=== PATIENT | male | born 1960 | race Caucasian/White ===

== ENCOUNTER 2018-05-12 12:23 | Inpatient (IN) | payer MEDICARE, MEDICAID ==
[~2018-05-12] VITALS: Ht 172.7 cm; Wt 105.2 kg
--- NOTE | 2018-05-12 12:24 | NUR ---
BIB RA 60 FROM [facility] FOR LOW O2SAT 80'S AFTER WALKING ASSOCIATED WITH SWEATING , TO ER BED , HOOKED TO MONITOR, CHANGED TO GOWN, PROVIDED W WARM BLANKET, AWAITING MD SMALL.
--- NOTE | 2018-05-12 12:28 | NUR ---
DR BARRETT AT BEDSIDE
[2018-05-12 12:52] LABS: BASOPHILS # (AUTO) 0.1 /CMM (0.0-0.2); BASOPHILS % (AUTO) 0.7 % (0.0-2.0); EOSINOPHILS % (AUTO) 0.4 % (0.0-6.0); HEMATOCRIT 47 % (39-51); HEMOGLOBIN 15.6 g/dL (13.5-17.5); LYMPHOCYTES # (AUTO) 2.3 /CMM (0.8-4.8); LYMPHOCYTES % (AUTO) 28.1 % (20.0-44.0); MEAN CORPUSCULAR HGB CONC 33 g/dl (31.0-36.0); MEAN CORPUSCULAR VOLUME 93 fL (80-96); MONOCYTES # (AUTO) 0.8 /CMM (0.1-1.30); MONOCYTES % (AUTO) 10.1 % (2.0-12.0); NEUTROPHILS # (AUTO) 4.9 /CMM (1.8-8.9); NEUTROPHILS % (AUTO) 60.7 % (43.0-81.0); PLATELET COUNT (AUTO) 265 /CMM (150-450); RED BLOOD CELL COUNT(AUTO) 5.02 MIL/uL (4.5-6.0)
[2018-05-12] MEDS ORDERED: FUROSEMIDE 40 MG/4 ML VIAL ONE (12:58)
[2018-05-12] MEDS ORDERED: FUROSEMIDE 40 MG/4 ML VIAL IV ONE (13:00)
[2018-05-12 13:01] LABS: CALCIUM, SERUM 9.2 mg/dL (8.5-10.1); CREATININE 2.5 mg/dL (0.6-1.3); POTASSIUM 3.4 mmol/L (3.5-5.1)
[2018-05-12 13:14] LABS: ALBUMIN 3.9 g/dL (3.4-5.0); BILIRUBIN,DIRECT 0.3 mg/dL (0.0-0.2); TOTAL PROTEIN, SERUM 9.1 g/dL (6.4-8.2)
--- NOTE | 2018-05-12 13:18 | NUR ---
called jevon betancourt for tele bed
[2018-05-12] MEDS ORDERED: ACET-868 PO (13:38)
[2018-05-12] MEDS ORDERED: LOPI1TAB2 PO (13:38)
[2018-05-12] MEDS ORDERED: MULT-447 PO (13:38)
[2018-05-12] MEDS ORDERED: FINA5TAB11 PO (13:38)
[2018-05-12] MEDS ORDERED: MAGN400O6 PO (13:38)
[2018-05-12] MEDS ORDERED: LEVO50TA8 PO (13:38)
[2018-05-12] MEDS ORDERED: HYDR-4384 PO (13:38)
[2018-05-12] MEDS ORDERED: DIPH25CA6 PO (13:38)
[2018-05-12] MEDS ORDERED: SENN-18 PO (13:38)
[2018-05-12] MEDS ORDERED: BISA10SU8 RC (13:38)
[2018-05-12] MEDS ORDERED: LOSA25TA27 PO (13:38)
[2018-05-12] MEDS ORDERED: GEMF600T PO (13:38)
[2018-05-12] MEDS ORDERED: ESCI5TAB PO (13:38)
[2018-05-12] MEDS ORDERED: AMOX500C2 PO (13:38)
[2018-05-12] MEDS ORDERED: TENO300T5 PO (13:38)
[2018-05-12] MEDS ORDERED: NA P133E RC (13:38)
[2018-05-12] MEDS ORDERED: APIX5TAB PO (13:38)
[2018-05-12] MEDS ORDERED: LORA10TA68 PO (13:38)
[2018-05-12] MEDS ORDERED: GABA-534 PO (13:38)
[2018-05-12] MEDS ORDERED: ATOR40TA PO (13:38)
[2018-05-12] MEDS ORDERED: LAMI300T PO (13:38)
[2018-05-12] MEDS ORDERED: TRAZ-182 PO (13:38)
[2018-05-12] MEDS ORDERED: CARV3.122 PO (13:38)
[2018-05-12] MEDS ORDERED: LIDO30AD10 TP (13:39)
[2018-05-12] MEDS ORDERED: METO2.5T7 PO (13:39)
[2018-05-12] MEDS ORDERED: FURO80TA85 PO (13:39)
[2018-05-12] MEDS ORDERED: ASPIRIN 81 MG TAB.CHEW ONE (13:57)
[2018-05-12] MEDS ORDERED: BISACODYL SUPP (10 MG) 10 MG/SUPP.RECT SUPP.RECT RC PRN (14:00)
[2018-05-12] MEDS ORDERED: ASPIRIN 81 MG TAB.CHEW PO ONE (14:00)
[2018-05-12] MEDS ORDERED: NA PHOS,M-B/NA PHOS,DI-BA 1 EA ENEMA RC PRN (14:00)
[2018-05-12] MEDS ORDERED: MAGNESIUM HYDROXIDE 30 ML UDC PO PRN ×2 (14:00→14:30)
--- NOTE | 2018-05-12 14:04 | NUR ---
REPORT GIVEN TO CASPER KRAMER OF TELE UNIT
[2018-05-12] MEDS ORDERED: ACETAMINOPHEN 325 MG TABLET PO PRN (14:30)
[2018-05-12] MEDS ORDERED: MORPHINE SULFATE INJ 2 MG/ML DISP.SYRIN IV PRN (14:30)
[2018-05-12] MEDS ORDERED: ONDANSETRON HCL/PF 4 MG/2 ML VIAL IVP PRN (14:30)
[2018-05-12] MEDS ORDERED: MAG HYDROX/AL HYDROX/SIMETH 30 ML UDC PO PRN (14:30)
[2018-05-12] MEDS ORDERED: Z GUARD REMEDY 2 OZ OINT TP PRN (14:30)
[2018-05-12] MEDS ORDERED: ENOXAPARIN SODIUM 40 MG/0.4 ML DISP.SYRIN SQ SCH (14:30)
--- NOTE | 2018-05-12 14:30 | NUR ---
MS grocery cashier Notes Received patient on divya in stable condition from ED. Vital signs stable; BP low, noted and reassessed as needed. Patient currently awake, resting in bed. Semi-Fowlers position. Alert and oriented x4, able to make needs known. No complaints of shortness of breath or pain at this time. Respirations even and unlabored on 4 L oxygen via nasal cannula, no acute distress noted. Peripheral IV to the right AC 20 gauge and intact, patent and saline locked. Ambulates with steady gait and standby assist. Skin assessment completed, no skin issues noted. Sacrum intact with no redness to site. Oriented patient to room and safety aspects and safety measures. Updated patient on current plan of care. Safety and fall precautions in place: bed in lowest and locked position, side rails up x2, bed alarm on, call light and personal possessions within reach. Reminded patient of safety measures, verbalized understanding. Room well lit. Personal belongings inventoried in front of patient upon arrival, signed form for acknowledgement. Received admission ordered and will carry out. Will continue to monitor and intervene as needed.
[2018-05-12 14:37] LABS: MAGNESIUM 1.9 mg/dL (1.8-2.4); PHOSPHORUS 6.8 mg/dL (2.5-4.9)
[2018-05-12 14:45] VITALS: BP 97/60
[2018-05-12] MEDS: FUROSEMIDE 40 MG/4 ML VIAL IV SCH ×3 (15:00→23:34)
[2018-05-12] MEDS: methylPREDNISolone SOD SUCC 125 MG/2ML VIAL IV SCH ×2 (15:00→17:11)
[2018-05-12] MEDS ORDERED: ALBUTEROL FS 2.5 MG/0.5 ML VIAL.NEB NEB PRN (15:00)
--- NOTE | 2018-05-12 15:02 | NUR ---
TRANSFERRED TO TELE UNIT WITH TECH VIA RIVKA
[2018-05-12 15:34] LABS: ABG BASE EXCESS 2.8 mmol/L; ABG OXYGEN SATURATION 96.6 % (92.0-98.5); ABG PO2 94.4 mmHg (75.0-100.0); AaDO2 71.3 mmHg; COHb 1.3 % (0.5-1.5); MetHb 0.4 % (0.0-1.5); SITE, ABG Right Radial; VENT MODE, BG NC 4L
[2018-05-12 16:00] VITALS: BP 131/75
[2018-05-12] MEDS ORDERED: CEFTRIAXONE 1 G in IV D5W 50 ML IV SCH (16:00)
[2018-05-12 16:08] LABS: THYROID STIMULATING HORMONE 4.052 uIU/mL (0.358-3.74)
[2018-05-12] MEDS: IPRATROPIUM NEB FS 0.5 MG/2.5 ML AMPUL.NEB NEB SCH ×2 (16:59→20:09)
[2018-05-12] MEDS ORDERED: GEMFIBROZIL 600 MG TABLET PO SCH (17:00)
[2018-05-12] MEDS ORDERED: AZITHROMYCIN 500 MG in IV D5W 250 ML IV SCH (17:00)
[2018-05-12] MEDS: GABAPENTIN 300 MG CAPSULE PO SCH (17:09)
[2018-05-12] MEDS: POTASSIUM CHLORIDE 20 MEQ TAB.PRT.SR PO SCH ×2 (17:09→20:22)
[2018-05-12] MEDS: CARVEDILOL 3.125 MG TABLET PO SCH (17:12)
[2018-05-12] MEDS: APIXABAN 5 MG TABLET PO SCH (17:21)
[2018-05-12] MEDS ORDERED: ALBUTEROL FS 2.5 MG/0.5 ML VIAL.NEB NEB SCH (19:30)
--- NOTE | 2018-05-12 19:30 | NUR ---
MS RN Closing Notes Patient currently awake, resting in bed. Semi-Fowlers position. Alert and oriented x4, able to make needs known. No complaints of shortness of breath or pain at this time. Respirations even and unlabored on 4 L oxygen via nasal cannula, no acute distress noted. Peripheral IV to the right AC 20 gauge and intact, patent and saline locked. Ambulates with steady gait and stanby assist. Updated patient on current plan of care and safety measures. Safety and fall precautions in place: bed in lowest and locked position, side rails up x2, bed alarm on, call light and personal possessions within reach. Reminded patient of safety measures, verbalized understanding. Room well lit. Front wheeled walker at the bedside. No acute events this shift. Endorsed care to invoice classification clerk WILLIAMS Brenner at this time.
--- NOTE | 2018-05-12 19:49 | NUR ---
RN OPENING NOTES RECEIVED PATIENT AWAKE IN BED. A/O X 4. ABLE TO MAKE NEEDS KNOWN. PATIENT HAS NO SIGNS OF RESPIRATORY DISTRESS. DENIES PAIN AT THIS TIME. SAFETY PRECAUTIONS IMPLEMENTED. CALL LIGHT WITHIN REACH. WILL CONTINUE TO MONITOR PATIENT THROUGHOUT MY SHIFT.
[2018-05-12] MEDS: CEFEPIME 1 GM in IV D5W 50 ML IV SCH (19:56)
[2018-05-12 20:00] VITALS: BP 131/79
[2018-05-12 20:14] VITALS: BP 131/79
[2018-05-12] MEDS ORDERED: POTASSIUM CHLORIDE 20 MEQ TAB.PRT.SR PO SCH (21:00)
[2018-05-12] MEDS: TRAZODONE 50 MG TABLET PO SCH (21:30)
[2018-05-12] MEDS: FINASTERIDE (5 MG) 5 MG TABLET PO SCH (21:30)
[2018-05-12] MEDS: diphenhydrAMINE HCL 25 MG CAPSULE PO SCH (21:31)
[2018-05-12] MEDS: SENNOSIDES 8.6 MG TABLET PO SCH (21:31)
[2018-05-12 23:33] VITALS: BP 116/70
[2018-05-12 23:50] VITALS: BP 115/70
[2018-05-13] VITALS: BP 117/73
[2018-05-13] MEDS: ALBUTEROL HALF STRENGTH 1.25 MG/3 ML VIAL.NEB NEB SCH ×4 (00:50→19:35)
[2018-05-13] MEDS: IPRATROPIUM NEB FS 0.5 MG/2.5 ML AMPUL.NEB NEB SCH ×4 (00:50→19:35)
[2018-05-13 04:00] VITALS: BP 114/59
[2018-05-13 06:07] LABS: *BASOS 0 % (Not Estab.); *EOS 1 % (Not Estab.); *EOS, ABSOLUTE 0.1 x10E3/uL (0.0-0.4); *HCT 43.4 % (37.5-51.0); *HGB 15.2 g/dL (13.0-17.7); *IMMATURE GRANULOCYTES 0 % (Not Estab.); *LYMPHOCYTES 30 % (Not Estab.); *MCH 31.3 pg (26.6-33.0); *MCV 89 fL (79-97); *MONOCYTES 6 % (Not Estab.); *MONOS, ABSOLUTE 0.4 x10E3/uL (0.1-0.9); *NEUTROPHILS 63 % (Not Estab.); *NEUTROPHILS, ABSOLUTE 4.2 x10E3/uL (1.4-7.0); *PLT 294 x10E3/uL (150-379); *RBC 4.86 x10E6/uL (4.14-5.80); *RDW 15.8 % (12.3-15.4)
--- NOTE | 2018-05-13 06:25 | NUR ---
RN CLOSING NOTES PATIENT IS RESTING IN BED AT THIS TIME. NO S/S OF RESPIRATORY DISTRESS. NO S/S OF SHORTNESS OF BREATH. NO FACIAL GRIMACING. IV SITE PATENT AND INTACT. SAFETY PRECAUTIONS IMPLEMENTED. CALL LIGHT WITHIN REACH. WILL ENDORSE TO AM RN.
[2018-05-13 06:37] LABS: BASOPHILS % (AUTO) 0.1 % (0.0-2.0); EOSINOPHILS % (AUTO) 0.1 % (0.0-6.0); HEMATOCRIT 46 % (39-51); HEMOGLOBIN 15.5 g/dL (13.5-17.5); LYMPHOCYTES # (AUTO) 1.4 /CMM (0.8-4.8); LYMPHOCYTES % (AUTO) 29.8 % (20.0-44.0); MEAN CORPUSCULAR HGB CONC 34 g/dl (31.0-36.0); MEAN CORPUSCULAR VOLUME 93 fL (80-96); MONOCYTES # (AUTO) 0.1 /CMM (0.1-1.30); MONOCYTES % (AUTO) 1.8 % (2.0-12.0); NEUTROPHILS # (AUTO) 3.2 /CMM (1.8-8.9); NEUTROPHILS % (AUTO) 68.2 % (43.0-81.0); PLATELET COUNT (AUTO) 267 /CMM (150-450); RED BLOOD CELL COUNT(AUTO) 4.94 MIL/uL (4.5-6.0); WHITE BLOOD COUNT (AUTO) 4.6 K/uL (4.3-11.0)
[2018-05-13 06:52] LABS: HDL CHOLESTEROL 34 mg/dL (40-60); LDL 122 mg/dL (0-99); THYROID STIMULATING HORMONE 0.581 uIU/mL (0.358-3.74); TRIGLYCERIDES 214 mg/dL (30-150)
[2018-05-13 06:55] LABS: ALANINE AMINOTRANSFERASE 56 U/L (12-78); ALBUMIN 3.7 g/dL (3.4-5.0); ALKALINE PHOSPHATASE 88 U/L (46-116); ASPARTATE AMINOTRANSFERASE 105 U/L (15-37); BILIRUBIN,TOTAL 0.8 mg/dL (0.2-1.0); CARBON DIOXIDE 26 mmol/L (21-32); CHLORIDE 96 mmol/L (98-107); CREATININE 1.8 mg/dL (0.6-1.3); GLUCOSE 133 mg/dL (74-106); MAGNESIUM 2.4 mg/dL (1.8-2.4); PHOSPHORUS 6.8 mg/dL (2.5-4.9); POTASSIUM 3.4 mmol/L (3.5-5.1); SODIUM SERUM 136 mmol/L (136-145); TOTAL PROTEIN, SERUM 9.1 g/dL (6.4-8.2); UREA NITROGEN, BLOOD 56 mg/dL (7-18)
[2018-05-13 07:38] LABS: CHOLESTEROL 196 mg/dL (<200)
--- NOTE | 2018-05-13 07:40 | NUR ---
RN NOTES PATIENT A/OX3, BREATHING EVEN AND UNLABORED, JUST COMPLETED BREATHING TX, PATIENT BACK ON O2 AT 3LPM VIA NC, NO SOB NOTED. KEPT COMFORTABLE, BEDSIDE TABLE AND CALL LIGHT WITHIN REACH, WILL CONTINUE TO MONITOR.
[2018-05-13 08:00] VITALS: BP 118/67
[2018-05-13 08:04] LABS: ABG BASE EXCESS 2.2 mmol/L; ABG OXYGEN SATURATION 92.1 % (92.0-98.5); ABG PCO2 46.3 mmHg (35.0-45.0); ABG PH 7.396 (7.350-7.450); ABG PO2 72.4 mmHg (75.0-100.0); AaDO2 72.6 mmHg; COHb 0.9 % (0.5-1.5); MetHb 0.4 % (0.0-1.5); O2Hb 90.9 % (94.0-97.0); SITE, ABG Right Radial; VENT MODE, BG NASAL CANNULA
[2018-05-13] MEDS: PANTOPRAZOLE 40 MG TABLET.DR PO SCH (08:08)
[2018-05-13] MEDS: LEVOTHYROXINE SODIUM 50 MCG TABLET PO SCH (08:08)
[2018-05-13] MEDS: LORATADINE 10 MG TABLET PO SCH (08:20)
[2018-05-13] MEDS: CARVEDILOL 3.125 MG TABLET PO SCH ×2 (08:21→17:40)
[2018-05-13] MEDS: methylPREDNISolone SOD SUCC 125 MG/2ML VIAL IV SCH ×2 (08:21→17:40)
[2018-05-13] MEDS: ATORVASTATIN 40 MG TABLET PO SCH (08:21)
[2018-05-13] MEDS: MULTIVIT W/MINERALS 1 TAB TABLET PO SCH (08:21)
[2018-05-13] MEDS: LOSARTAN POTASSIUM 25 MG TABLET PO SCH (08:21)
[2018-05-13] MEDS: LIDOCAINE 5% (PATCH) 1 EA PATCH TP SCH (08:22)
[2018-05-13] MEDS: METOLAZONE 2.5 MG TABLET PO SCH (08:22)
[2018-05-13] MEDS: GABAPENTIN 300 MG CAPSULE PO SCH ×3 (08:22→17:39)
[2018-05-13] MEDS: ESCITALOPRAM OXALATE (10 MG) 10 MG TABLET PO SCH (08:22)
[2018-05-13] MEDS ORDERED: FUROSEMIDE 40 MG TABLET PO SCH (09:00)
[2018-05-13] MEDS: APIXABAN 5 MG TABLET PO SCH ×2 (09:20→17:43)
[2018-05-13] MEDS ORDERED: POTASSIUM CHLORIDE 20 MEQ TAB.PRT.SR PO ONE (09:30)
--- NOTE | 2018-05-13 11:30 | NUR ---
RN NOTES SINA AT BEDSIDE FOR EVAL AND TO DISCUSS PLAN OF CARE.
[2018-05-13] MEDS: HYDROCODONE/APAP 5/325MG 1 EACH TABLET PO PRN (12:02)
[2018-05-13 12:11] LABS: *% CD 4 POS. LYMPH 7.8 % (30.8-58.5); *% CD 8 POS. LYMPH 47.9 % (12.0-35.5); *ABSOLUTE CD 4 HELPER 156 /uL (359-1519); *ABSOLUTE CD 8 SUPPRESSOR 958 /uL (109-897); *CD4/CD8 RATIO 0.16 (0.92-3.72)
[2018-05-13 16:00] VITALS: BP 113/65
--- NOTE | 2018-05-13 18:24 | NUR ---
RN NOTES PERIPHERALLY IV RE-INSERTED ON RIGHT AC, LATERAL SIDE OF THE ARM. GAUGE 20. POSITIVE BLOOD RETURN AND FLUSHES WITH NS. PATIENT A/OX4, BREATHING EVEN AND UNLABORED, REMOVES [employer] CANNULA FROM TIME TO TIME, NO SOB NOTED. PATIENT DENIES PAIN OR DISCOMFORT AT THIS TIME. I SPOKE WITH THE PARTNER BRANDI, AND HE STATED HE WILL BRING 3 HIV MEDICATIONS LATER TONIGHT. PHARMACY MADE AWARE. PATIENT ABLE TO AMBULATE INDEPENDENTLY TO RESTROOM WITH STEADY GAIT. NO DISTRESS NOTED, CALL LIGHT WITHIN REACH, WILL ENDORSE TO REMARKETING REP FOR WHITNEY.
[2018-05-13] MEDS: CEFEPIME 1 GM in IV D5W 50 ML IV SCH (19:48)
[2018-05-13 20:00] VITALS: BP 124/73
[2018-05-13] MEDS ORDERED: AZITHROMYCIN 250 MG TABLET PO SCH (20:00)
[2018-05-13] MEDS: diphenhydrAMINE HCL 25 MG CAPSULE PO SCH (20:09)
[2018-05-13] MEDS: SENNOSIDES 8.6 MG TABLET PO SCH (20:09)
[2018-05-13] MEDS: TRAZODONE 50 MG TABLET PO SCH (20:09)
[2018-05-13] MEDS: FINASTERIDE (5 MG) 5 MG TABLET PO SCH (20:09)
[2018-05-13] MEDS: ACYCLOVIR 800 MG TABLET PO SCH (20:10)
[2018-05-13] MEDS: SULFAMETH/TRIMETH 800/160 MG 1 UDTAB TABLET PO SCH (20:10)
[2018-05-13] MEDS: FLUCONAZOLE (100 MG) 100 MG TABLET PO SCH (20:11)
--- NOTE | 2018-05-13 20:25 | NUR ---
RN OPENING NOTES RECEIVED PATIENT AWAKE IN BED. PATIENT A/O X 4. BREATHING EVEN AND UNLABORED. NO S/S OF RESPIRATORY DISTRESS. PATIENT DENIES SOB. PATIENT DENIES PAIN OR DISCOMFORT AT THIS TIME. PATIENT IS ABLE TO MAKE NEEDS KNOWN. SAFETY PRECAUTIONS IMPLEMENTED. CALL LIGHT WITHIN REACH. WILL CONTINUE TO MONITOR PATIENT THROUGHOUT THE SHIFT.
[2018-05-14 00:43] VITALS: BP 124/73
[2018-05-14] MEDS: ALBUTEROL HALF STRENGTH 1.25 MG/3 ML VIAL.NEB NEB SCH ×4 (01:02→19:39)
[2018-05-14] MEDS: IPRATROPIUM NEB FS 0.5 MG/2.5 ML AMPUL.NEB NEB SCH ×4 (01:02→19:39)
[2018-05-14] MEDS ORDERED: LAMI150T PO (04:28)
[2018-05-14] MEDS ORDERED: LOPI1TAB2 PO (04:28)
[2018-05-14] MEDS ORDERED: TENO300T5 PO (04:28)
--- NOTE | 2018-05-14 06:43 | NUR ---
RN CLOSING NOTES PATIENT IS RESTING IN BED. NO S/S OF RESPIRATORY DISTRESS. NO FACIAL GRIMACING NOTED AT THIS TIME. ALL NEEDS MET THROUGHOUT THE SHIFT. SAFETY PRECAUTIONS IMPLEMENTED. CALL LIGHT WITHIN REACH. WILL ENDORSE TO AM RN.
--- NOTE | 2018-05-14 07:10 | NUR ---
RN NOTES PATIENT A/OX3, BREATHING EVEN AND UNLABORED, JUST COMPLETED BREATHING TX, PATIENT CONTINUOUS TO BE ON O2 VIA NC, NO SOB NOTED. PATIENT C/O BURNING SENSATION, DISCOMFORT IN HIS MOUTH AND THROAT, WILL INFORM MD, KEPT COMFORTABLE, BEDSIDE TABLE AND CALL LIGHT WITHIN REACH, WILL CONTINUE TO MONITOR.
[2018-05-14 08:00] VITALS: BP 129/82
[2018-05-14 08:08] LABS: CALCIUM, SERUM 8.9 mg/dL (8.5-10.1); POTASSIUM 3.1 mmol/L (3.5-5.1)
[2018-05-14] MEDS: methylPREDNISolone SOD SUCC 125 MG/2ML VIAL IV SCH ×2 (08:09→16:17)
[2018-05-14] MEDS: LIDOCAINE 5% (PATCH) 1 EA PATCH TP SCH (08:09)
[2018-05-14] MEDS: LEVOTHYROXINE SODIUM 50 MCG TABLET PO SCH (08:09)
[2018-05-14] MEDS: PANTOPRAZOLE 40 MG TABLET.DR PO SCH (08:09)
[2018-05-14] MEDS: FLUCONAZOLE (100 MG) 100 MG TABLET PO SCH (08:10)
[2018-05-14] MEDS: GABAPENTIN 300 MG CAPSULE PO SCH ×3 (08:10→16:14)
[2018-05-14] MEDS: LORATADINE 10 MG TABLET PO SCH (08:10)
[2018-05-14] MEDS: ATORVASTATIN 40 MG TABLET PO SCH (08:10)
[2018-05-14] MEDS: MULTIVIT W/MINERALS 1 TAB TABLET PO SCH (08:10)
[2018-05-14] MEDS: ACYCLOVIR 800 MG TABLET PO SCH ×2 (08:10→16:14)
[2018-05-14] MEDS: ESCITALOPRAM OXALATE (10 MG) 10 MG TABLET PO SCH (08:10)
[2018-05-14 08:11] LABS: BASOPHILS % (AUTO) 0.1 % (0.0-2.0); HEMATOCRIT 44 % (39-51); HEMOGLOBIN 15.2 g/dL (13.5-17.5); LYMPHOCYTES # (AUTO) 1.1 /CMM (0.8-4.8); LYMPHOCYTES % (AUTO) 13.2 % (20.0-44.0); MEAN CORPUSCULAR HGB CONC 34 g/dl (31.0-36.0); MEAN CORPUSCULAR VOLUME 91 fL (80-96); MONOCYTES # (AUTO) 0.5 /CMM (0.1-1.30); MONOCYTES % (AUTO) 6.8 % (2.0-12.0); NEUTROPHILS # (AUTO) 6.4 /CMM (1.8-8.9); NEUTROPHILS % (AUTO) 79.9 % (43.0-81.0); PLATELET COUNT (AUTO) 299 /CMM (150-450); RED BLOOD CELL COUNT(AUTO) 4.84 MIL/uL (4.5-6.0)
[2018-05-14] MEDS: METOLAZONE 2.5 MG TABLET PO SCH (08:11)
[2018-05-14] MEDS: LOSARTAN POTASSIUM 25 MG TABLET PO SCH (08:11)
[2018-05-14] MEDS: CARVEDILOL 3.125 MG TABLET PO SCH ×2 (08:12→16:13)
[2018-05-14] MEDS: APIXABAN 5 MG TABLET PO SCH ×2 (08:19→16:13)
[2018-05-14] MEDS: KALETRA PO SCH ×2 (09:00→16:13)
[2018-05-14] MEDS: TENOFOVIR 300 MG PO SCH (09:01)
[2018-05-14] MEDS: POTASSIUM CHLORIDE 20 MEQ TAB.PRT.SR PO SCH ×3 (09:03→11:16)
[2018-05-14] MEDS: FUROSEMIDE 40 MG TABLET PO SCH (09:03)
[2018-05-14] MEDS: LAMIVUDINE 300 MG PO SCH (11:41)
[2018-05-14 13:03] LABS: APPEARANCE,URINE CLEAR (CLEAR); BILIRUBIN,URINE NEGATIVE (NEGATIVE); BLOOD, URINE NEGATIVE Ery/uL (NEGATIVE); COLOR,URINE YELLOW (YELLOW); KETONES,URINE NEGATIVE (NEGATIVE); LEUKOCYTE ESTERASE ,URINE NEGATIVE (NEGATIVE); NITRITE, URINE NEGATIVE (NEGATIVE); PROTEIN,URINE NEGATIVE (NEGATIVE); UGLUCOSE 1+ mg/dL (NEGATIVE); UROBILINOGEN,URINE 0.2 EU/dL (0.2)
[2018-05-14 13:38] LABS: BACTERIA,URINE None seen /HPF (None Seen); RBC,URINE 0-2 /HPF (0-2); SQUAMOUS EPITHELIAL CELL,UR Few /HPF (None Seen); WBC,URINE 0-2 /HPF (0-3)
[2018-05-14 16:00] VITALS: BP 107/73
--- NOTE | 2018-05-14 19:19 | NUR ---
RN NOTES PATIENT A/OX4, NO DISTRESS NOTED, VSS, NO SIGNIFICANT CHANGE THROUGHOUT THE SHIFT, FRANKLYN AWARE OF DISCOMFORT IN THE THROAT, NO NEW ORDER. PATIENT'S NEEDS ATTENDED AND MET, CALL LIGHT WITHIN REACH, ENDORSED TO AWARD MACHINE OPERATOR FOR WHITNEY.
--- NOTE | 2018-05-14 19:30 | NUR ---
PT IN BED AWAKE AND ALERT. BREATHING EVENLY. NO SOB. NAD .SKIN WARM AND DRY. BREATHING EVENLY. REPORTED SOB WHILE AMBULATING TO THE BATHROOM. OTHERWISE NO OTHER COMPLAINT. DENIED PAIN OR DISCOMFORT. NEEDS ATTENDED. BED LOW LOCKED.CALL LIGHT WITHIN REACH. WILL CONT TO MONITOR AND WILL ENDORSE TO AM SHIFT FOR WHITNEY.
--- NOTE | 2018-05-14 19:42 | NUR ---
RT NOTE PT FOUND RETURNING FROM RESTROOM, O2 SAT 88% ON ROOM AIR. RN NOTIFIED TO HAVE NC ON WHEN MOVING AROUND OR GOING TO RESTROOM. BREATHING TX STARTED AND WILL BE PUT ON NC AFTER TX IS DONE.
[2018-05-14 20:00] VITALS: BP 144/75
[2018-05-14] MEDS: SULFAMETH/TRIMETH 800/160 MG 1 UDTAB TABLET PO SCH (20:02)
[2018-05-14] MEDS: FINASTERIDE (5 MG) 5 MG TABLET PO SCH (22:36)
[2018-05-14] MEDS: TRAZODONE 50 MG TABLET PO SCH (22:36)
[2018-05-14] MEDS: SENNOSIDES 8.6 MG TABLET PO SCH (22:36)
[2018-05-14] MEDS: diphenhydrAMINE HCL 25 MG CAPSULE PO SCH (22:36)
[2018-05-15] MEDS: ALBUTEROL HALF STRENGTH 1.25 MG/3 ML VIAL.NEB NEB SCH ×4 (01:21→20:30)
[2018-05-15] MEDS: IPRATROPIUM NEB FS 0.5 MG/2.5 ML AMPUL.NEB NEB SCH ×4 (01:21→20:30)
--- NOTE | 2018-05-15 07:06 | NUR ---
PT REMAINED STABLE WITH NO ACUTE EVENT DURING THE NIGHT. NO SOB. NAD. ASSISTED W. ADLS. CALL LIGHT WITHIN REACH. WILL CONT TO MONITOR AND WILL ENDORSE TO AM SHIFT FOR WHITNEY.
[2018-05-15 07:21] LABS: BASOPHILS % (AUTO) 0.1 % (0.0-2.0); HEMATOCRIT 44 % (39-51); HEMOGLOBIN 14.9 g/dL (13.5-17.5); LYMPHOCYTES # (AUTO) 0.9 /CMM (0.8-4.8); LYMPHOCYTES % (AUTO) 12.5 % (20.0-44.0); MEAN CORPUSCULAR HGB CONC 34 g/dl (31.0-36.0); MEAN CORPUSCULAR VOLUME 92 fL (80-96); MONOCYTES # (AUTO) 0.3 /CMM (0.1-1.30); MONOCYTES % (AUTO) 3.6 % (2.0-12.0); NEUTROPHILS # (AUTO) 6.1 /CMM (1.8-8.9); NEUTROPHILS % (AUTO) 83.8 % (43.0-81.0); PLATELET COUNT (AUTO) 291 /CMM (150-450); RED BLOOD CELL COUNT(AUTO) 4.75 MIL/uL (4.5-6.0); WHITE BLOOD COUNT (AUTO) 7.3 K/uL (4.3-11.0)
[2018-05-15 07:48] LABS: ALBUMIN 3.2 g/dL (3.4-5.0); BILIRUBIN,TOTAL 0.3 mg/dL (0.2-1.0); CALCIUM, SERUM 9.1 mg/dL (8.5-10.1); MAGNESIUM 2.3 mg/dL (1.8-2.4); PHOSPHORUS 2.2 mg/dL (2.5-4.9); POTASSIUM 3.8 mmol/L (3.5-5.1); TOTAL PROTEIN, SERUM 7.9 g/dL (6.4-8.2)
[2018-05-15 08:00] VITALS: BP 139/88
[2018-05-15] MEDS: SULFAMETH/TRIMETH 800/160 MG 1 UDTAB TABLET PO SCH (09:15)
[2018-05-15] MEDS: LORATADINE 10 MG TABLET PO SCH (09:15)
[2018-05-15] MEDS: CARVEDILOL 3.125 MG TABLET PO SCH ×2 (09:15→17:57)
[2018-05-15] MEDS: METOLAZONE 2.5 MG TABLET PO SCH (09:16)
[2018-05-15] MEDS: ESCITALOPRAM OXALATE (10 MG) 10 MG TABLET PO SCH (09:16)
[2018-05-15] MEDS: FUROSEMIDE 40 MG TABLET PO SCH (09:16)
[2018-05-15] MEDS: FLUCONAZOLE (100 MG) 100 MG TABLET PO SCH (09:16)
[2018-05-15] MEDS: MULTIVIT W/MINERALS 1 TAB TABLET PO SCH (09:16)
[2018-05-15] MEDS: LOSARTAN POTASSIUM 25 MG TABLET PO SCH (09:16)
[2018-05-15] MEDS: GABAPENTIN 300 MG CAPSULE PO SCH ×3 (09:17→17:56)
[2018-05-15] MEDS: ACYCLOVIR 800 MG TABLET PO SCH ×2 (09:17→17:56)
[2018-05-15] MEDS: ATORVASTATIN 40 MG TABLET PO SCH ×2 (09:17→09:28)
[2018-05-15] MEDS: TENOFOVIR 300 MG PO SCH (09:19)
[2018-05-15] MEDS: LAMIVUDINE 300 MG PO SCH (09:20)
[2018-05-15] MEDS: APIXABAN 5 MG TABLET PO SCH ×2 (09:20→17:56)
[2018-05-15] MEDS: KALETRA PO SCH ×2 (09:20→17:56)
[2018-05-15] MEDS: PANTOPRAZOLE 40 MG TABLET.DR PO SCH (09:27)
[2018-05-15] MEDS: LEVOTHYROXINE SODIUM 50 MCG TABLET PO SCH (09:27)
[2018-05-15] MEDS: LIDOCAINE 5% (PATCH) 1 EA PATCH TP SCH (09:29)
[2018-05-15] MEDS: methylPREDNISolone SOD SUCC 125 MG/2ML VIAL IV SCH ×2 (09:55→09:56)
[2018-05-15 11:09] LABS: *SPE A/G RATIO 0.8 (0.7-1.7); *SPE ALBUMIN 3.9 g/dL (2.9-4.4); *SPE ALPHA-1-GLOBULIN 0.2 g/dL (0.0-0.4); *SPE ALPHA-2-GLOBULIN 1.1 g/dL (0.4-1.0); *SPE BETA GLOBULIN 1.2 g/dL (0.7-1.3); *SPE GLOBULIN, TOTAL 4.6 g/dL (2.2-3.9); *SPE M-SPIKE 1.5 g/dL (Not Observed)
[2018-05-15] MEDS ORDERED: K PHOS NEUTRAL 250 MG TABLET PO ONE (12:00)
[2018-05-15 12:08] LABS: *SPE A/G RATIO 0.7 (0.7-1.7); *SPE ALBUMIN 3.4 g/dL (2.9-4.4); *SPE ALPHA-1-GLOBULIN 0.2 g/dL (0.0-0.4); *SPE ALPHA-2-GLOBULIN 1.2 g/dL (0.4-1.0); *SPE BETA GLOBULIN 0.7 g/dL (0.7-1.3); *SPE GLOBULIN, TOTAL 5.1 g/dL (2.2-3.9); *SPE M-SPIKE 2.3 g/dL (Not Observed); *SPEGAMMA GLOBULIN 2.9 g/dL (0.4-1.8)
[2018-05-15 16:00] VITALS: BP 116/63
[2018-05-15 20:00] VITALS: BP 138/86
[2018-05-15] MEDS: TRAZODONE 50 MG TABLET PO SCH (21:23)
[2018-05-15] MEDS: FINASTERIDE (5 MG) 5 MG TABLET PO SCH (21:23)
[2018-05-15] MEDS: diphenhydrAMINE HCL 25 MG CAPSULE PO SCH (21:23)
[2018-05-15] MEDS: SENNOSIDES 8.6 MG TABLET PO SCH (21:23)
[2018-05-15] MEDS: HYDROCODONE/APAP 5/325MG 1 EACH TABLET PO PRN (23:07)
--- NOTE | 2018-05-15 23:10 | NUR ---
norco 5 given as ordered per pt's request for c/o generalized body pain . will cont to monitor ,
--- NOTE | 2018-05-16 00:20 | NUR ---
PT WAS VISITED BY HIS PARTNER WHO BROUGHT HIM SOME CLOTHING. ALL THE QUESTIONS FROM THE VISITORS WERE ANSWERED,
[2018-05-16] MEDS: ALBUTEROL HALF STRENGTH 1.25 MG/3 ML VIAL.NEB NEB SCH ×4 (02:04→20:19)
[2018-05-16] MEDS: IPRATROPIUM NEB FS 0.5 MG/2.5 ML AMPUL.NEB NEB SCH ×4 (02:04→20:19)
--- NOTE | 2018-05-16 02:55 | NUR ---
pt in bed awake. w/ NAD. no c/o discomfort, will cont to monitor ,
--- NOTE | 2018-05-16 06:22 | NUR ---
PT IN BED SLEEPING. BREATHING EVENLY. NO ACUTE EVENT DURING THE NIGHT. STABLE W/ NO BEHAVIORAL ISSUE. MEDICATED ORDERED. BED LOW LOCKED. SRX2. CALL LIGHT WITHIN REACH. WILL CONT TO MONITOR AND WILL ENDORSE TO AM SHIFT FOR WHITNEY.
--- NOTE | 2018-05-16 07:10 | NUR ---
RN NOTES PATIENT IN BED ALERT ORIENTED X 3. NO ACUTE DISTRESS NOTED. BREATHING UNLABORED. NO SOB NOTED. SAFETY MEASURES IN PLACE. CALL LIGHT WITHIN REACH. WILL CONTINUE TO MONITOR ACCORDINGLY.
[2018-05-16 08:00] VITALS: BP 128/81
[2018-05-16] MEDS: PANTOPRAZOLE 40 MG TABLET.DR PO SCH (08:16)
[2018-05-16] MEDS: LEVOTHYROXINE SODIUM 50 MCG TABLET PO SCH (08:16)
[2018-05-16] MEDS: TENOFOVIR 300 MG PO SCH (09:06)
[2018-05-16] MEDS: LAMIVUDINE 300 MG PO SCH (09:06)
[2018-05-16] MEDS: KALETRA PO SCH ×2 (09:06→17:11)
[2018-05-16] MEDS: FUROSEMIDE 40 MG TABLET PO SCH (09:10)
[2018-05-16] MEDS: ACYCLOVIR 800 MG TABLET PO SCH ×2 (09:11→17:10)
[2018-05-16] MEDS: GABAPENTIN 300 MG CAPSULE PO SCH ×3 (09:11→17:10)
[2018-05-16] MEDS: MULTIVIT W/MINERALS 1 TAB TABLET PO SCH (09:11)
[2018-05-16] MEDS: METOLAZONE 2.5 MG TABLET PO SCH (09:11)
[2018-05-16] MEDS: LORATADINE 10 MG TABLET PO SCH (09:12)
[2018-05-16] MEDS: ESCITALOPRAM OXALATE (10 MG) 10 MG TABLET PO SCH (09:12)
[2018-05-16] MEDS: LOSARTAN POTASSIUM 25 MG TABLET PO SCH (09:12)
[2018-05-16] MEDS: FLUCONAZOLE (100 MG) 100 MG TABLET PO SCH (09:13)
[2018-05-16] MEDS: LIDOCAINE 5% (PATCH) 1 EA PATCH TP SCH (09:13)
[2018-05-16] MEDS: APIXABAN 5 MG TABLET PO SCH ×2 (09:14→17:11)
[2018-05-16] MEDS: methylPREDNISolone SOD SUCC 40 MG/ML VIAL IV SCH (09:14)
[2018-05-16] MEDS: CARVEDILOL 3.125 MG TABLET PO SCH ×2 (09:14→17:11)
[2018-05-16 09:54] LABS: ABG BASE EXCESS 11.5 mmol/L; ABG OXYGEN SATURATION 85.2 % (92.0-98.5); ABG PCO2 57.6 mmHg (35.0-45.0); ABG PH 7.441 (7.350-7.450); ABG PO2 51.3 mmHg (75.0-100.0); AaDO2 29.5 mmHg; COHb 0.6 % (0.5-1.5); MetHb 0.7 % (0.0-1.5); O2Hb 84.1 % (94.0-97.0); SITE, ABG Right Radial
--- NOTE | 2018-05-16 10:05 | NUR ---
MS RN NOTES DR GLOVER AWARE OF ABG RESULT, WITH NEW ORDERS MADE. NOTED AND CARRIED OUT.
--- NOTE | 2018-05-16 10:05 | NUR ---
PT. IS AWAKE AND ALERT, DECREASED O2 FLOW FROM 3 LPM TO 1 LPM O2 FLOW PER DR. GLOVER. Addendum: 05/16/18 at 1007 by SERENITY FELDER RT Amended: Links added.
[2018-05-16] MEDS: ATORVASTATIN 40 MG TABLET PO SCH (10:12)
[2018-05-16 16:00] VITALS: BP 148/84
[2018-05-16] MEDS: SULFAMETH/TRIMETH 800/160 MG 1 UDTAB TABLET PO SCH (18:14)
--- NOTE | 2018-05-16 19:00 | NUR ---
RN NOTES PATIENT IN BED ALERT ORIENTED X 3. NO ACUTE DISTRESS NOTED. BREATHING UNLABORED. NO SOB NOTED. IV ACCESS PATENT AND INTACT, NO REDNESS OR SWELLING NOTED. DUE MEDICATIONS GIVEN, NO ASE NOTED. NEEDS ATTENDED AND ANTICIPATED. SAFETY MEASURES IN PLACE. CALL LIGHT WITHIN REACH. ENDORSED TO NIGHT NURSE FOR CONTINUITY OF CARE.
--- NOTE | 2018-05-16 19:10 | NUR ---
MS ARLINE INITIAL NOTES RECEIVED REPORT FORM AM NURSE ROGER AND SEEN PT LYING IN BED AWAKE AND ALERT WATCHING TV AT THIS TIME. DENIES ANY PAIN OR ANY DISCOMFORT. HEPLOCK PATENT AND INTACT ON HIS RIGHT WRIST. KEPT HIM WARM AND COMFORTABLE AT ALL TIMES. AWARE HOW TO USE THE CALL LIGHT SYSTEM BUT I ENCOURAGE HIM TO USE IT IF NEEDS SOME HELP OR ASSISTANCE. WILL CONTINUE MONITORING.
[2018-05-16 20:00] VITALS: BP 111/67
[2018-05-16] MEDS: diphenhydrAMINE HCL 25 MG CAPSULE PO SCH (21:20)
[2018-05-16] MEDS: TRAZODONE 50 MG TABLET PO SCH (21:20)
[2018-05-16] MEDS: SENNOSIDES 8.6 MG TABLET PO SCH (21:20)
[2018-05-16] MEDS: FINASTERIDE (5 MG) 5 MG TABLET PO SCH (21:20)
--- NOTE | 2018-05-17 00:01 | NUR ---
MS ARLINE NOTES C/O THROAT PAIN AND COLD SORE PAIN, MOTRIN 600MG PO GIVEN ORDERED. PT TOLERATED WELL, NO ASPIRATION NOTED. KEPT HIM WARM AND COMFORTABLE AT ALL TIMES. WILL CONTINUE MONITORING.
[2018-05-17] MEDS: IBUPROFEN 600 MG TABLET PO PRN ×2 (00:18→21:34)
[2018-05-17] MEDS: ALBUTEROL HALF STRENGTH 1.25 MG/3 ML VIAL.NEB NEB SCH ×4 (00:51→19:38)
[2018-05-17] MEDS: IPRATROPIUM NEB FS 0.5 MG/2.5 ML AMPUL.NEB NEB SCH ×4 (00:51→19:38)
[2018-05-17 07:03] LABS: BASOPHILS % (AUTO) 0.2 % (0.0-2.0); HEMATOCRIT 47 % (39-51); HEMOGLOBIN 15.8 g/dL (13.5-17.5); LYMPHOCYTES # (AUTO) 1.4 /CMM (0.8-4.8); LYMPHOCYTES % (AUTO) 22.2 % (20.0-44.0); MEAN CORPUSCULAR HGB CONC 34 g/dl (31.0-36.0); MEAN CORPUSCULAR VOLUME 92 fL (80-96); MONOCYTES # (AUTO) 0.5 /CMM (0.1-1.30); MONOCYTES % (AUTO) 8.5 % (2.0-12.0); NEUTROPHILS # (AUTO) 4.4 /CMM (1.8-8.9); NEUTROPHILS % (AUTO) 69.1 % (43.0-81.0); PLATELET COUNT (AUTO) 293 /CMM (150-450); RED BLOOD CELL COUNT(AUTO) 5.07 MIL/uL (4.5-6.0); WHITE BLOOD COUNT (AUTO) 6.4 K/uL (4.3-11.0)
[2018-05-17 07:22] LABS: CALCIUM, SERUM 9.1 mg/dL (8.5-10.1); CREATININE 0.9 mg/dL (0.6-1.3); POTASSIUM 3.8 mmol/L (3.5-5.1)
--- NOTE | 2018-05-17 07:43 | NUR ---
MS INFORMATION AND DATA ARCHITECT ANALYST CLOSING NOTES PT REMAINS SLEEPING COMFORTABLY IN BED WITHOUT ANY ACUTE DISTRESS NOTED. SLEPT WELL AND ALL DUE MEDS GIVEN . KEPT HIM WARM AND COMFORTABLY IN BED AT ALL TIMES. ENDORSE TO AM NURSE FOR CONTINUITY OF CARE. PLACE CALL LIGHT AT REACH.
--- NOTE | 2018-05-17 07:50 | NUR ---
RN NOTES PATIENT A/OX4, ON O2 AT 2LPM VIA NC, BREATHING EVEN AND UNLABORED, NO SOB NOTED, DENIES PAIN OR DISCOMFORT AT THIS TIME, NEEDS ATTENDED, CALL LIGHT WITHIN REACH, WILL CONTINUE TO MONITOR.
[2018-05-17 08:00] VITALS: BP 136/72
[2018-05-17] MEDS: LEVOTHYROXINE SODIUM 50 MCG TABLET PO SCH (08:37)
[2018-05-17] MEDS: ESCITALOPRAM OXALATE (10 MG) 10 MG TABLET PO SCH (08:37)
[2018-05-17] MEDS: methylPREDNISolone SOD SUCC 40 MG/ML VIAL IV SCH (08:37)
[2018-05-17] MEDS: PANTOPRAZOLE 40 MG TABLET.DR PO SCH (08:37)
[2018-05-17] MEDS: LIDOCAINE 5% (PATCH) 1 EA PATCH TP SCH (08:37)
[2018-05-17] MEDS: LORATADINE 10 MG TABLET PO SCH (08:38)
[2018-05-17] MEDS: CARVEDILOL 3.125 MG TABLET PO SCH ×2 (08:38→16:54)
[2018-05-17] MEDS: GABAPENTIN 300 MG CAPSULE PO SCH ×3 (08:38→16:53)
[2018-05-17] MEDS: FLUCONAZOLE (100 MG) 100 MG TABLET PO SCH (08:38)
[2018-05-17] MEDS: MULTIVIT W/MINERALS 1 TAB TABLET PO SCH (08:38)
[2018-05-17] MEDS: ATORVASTATIN 40 MG TABLET PO SCH (08:38)
[2018-05-17] MEDS: LOSARTAN POTASSIUM 25 MG TABLET PO SCH (08:39)
[2018-05-17] MEDS: LAMIVUDINE 300 MG PO SCH (08:40)
[2018-05-17] MEDS: APIXABAN 5 MG TABLET PO SCH ×2 (08:40→16:53)
[2018-05-17] MEDS: KALETRA PO SCH ×2 (08:40→16:55)
[2018-05-17] MEDS: TENOFOVIR 300 MG PO SCH (08:40)
[2018-05-17] MEDS: ACYCLOVIR 800 MG TABLET PO SCH ×2 (08:41→16:55)
--- NOTE | 2018-05-17 15:00 | NUR ---
RN NOTES PATIENT AMBULATES IN THE HALLWAY, NO DISTRESS NOTED.
[2018-05-17 16:00] VITALS: BP 121/69
[2018-05-17] MEDS ORDERED: LIDOCAINE VISCOUS 2% UD 15 ML UDC PO ONE (17:56)
[2018-05-17] MEDS ORDERED: MAG HYDROX/AL HYDROX/SIMETH 30 ML UDC PO ONE (17:57)
[2018-05-17] MEDS ORDERED: NYSTATIN (PYXIS) 500,000 UNIT/5 ML ORAL.SUSP PO ONE (17:57)
--- NOTE | 2018-05-17 18:22 | NUR ---
RN NOTES PATIENT IN NO SIGNIFICANT DISTRESS, NO SOB NOTED, PATIENT INDEPENDENT WITH ADLS. DENIES PAIN OR DISCOMFORT. AWAITING FOR VISCOUS FROM PHARMACY TO DELIVER. PATIENT AWARE. NEEDS ATTENDED AND MET, CALL LIGHT WITHIN REACH, WILL CONTINUE TO MONITOR. Addendum: 05/17/18 at 1826 by MAGGIE HUMMEL RN WILL ENDORSE TO CHARGER FOR WHITNEY.
--- NOTE | 2018-05-17 19:30 | NUR ---
MS ARLINE INITIAL NOTES RECEIVED REPORT FROM AM NURSE AND SEEN PT IN BED LYING AWAKE AND ALERT DENIES ANY PAIN. NO SOB NOTED . KEPT HIM WARM AND COMFORTABLE AT ALL TIMES. PLACE CALL LIGHT AT REACH.
[2018-05-17 20:00] VITALS: BP 140/75
[2018-05-17] MEDS: SULFAMETH/TRIMETH 800/160 MG 1 UDTAB TABLET PO SCH (20:07)
[2018-05-17] MEDS: [UNRECOGNIZED DRUG - OTHER] PO SCH (20:08)
[2018-05-17] MEDS: NYSTATIN PO SCH (20:08)
[2018-05-17] MEDS: MOUTHWASH PO SCH (20:08)
[2018-05-17] MEDS: VISCOUS LIDOCAINE PO SCH (20:08)
[2018-05-17] MEDS: SENNOSIDES 8.6 MG TABLET PO SCH (21:28)
[2018-05-17] MEDS: TRAZODONE 50 MG TABLET PO SCH (21:28)
[2018-05-17] MEDS: FINASTERIDE (5 MG) 5 MG TABLET PO SCH (21:28)
[2018-05-17] MEDS: diphenhydrAMINE HCL 25 MG CAPSULE PO SCH (21:28)
--- NOTE | 2018-05-17 21:35 | NUR ---
MS MACHINE ETCHER NOTES C/O PAIN ON HIS MOUTH AND NECK , IBUPROFEN GIVEN ORDERED. ROUTINE MEDS ALSO GIVEN. LIGHT SNACKS ALSO SERVED. KEPT HIM WARM AND COMFORTABLE AT ALL TIMES. PLACE CALL LIGHT AT REACH.
[2018-05-18] MEDS: MOUTHWASH PO SCH ×5 (00:37→21:13)
[2018-05-18] MEDS: [UNRECOGNIZED DRUG - OTHER] PO SCH ×5 (00:37→21:13)
[2018-05-18] MEDS: NYSTATIN PO SCH ×5 (00:37→21:13)
[2018-05-18] MEDS: VISCOUS LIDOCAINE PO SCH ×5 (00:37→21:13)
[2018-05-18] MEDS: ALBUTEROL HALF STRENGTH 1.25 MG/3 ML VIAL.NEB NEB SCH ×4 (01:28→19:30)
[2018-05-18] MEDS: IPRATROPIUM NEB FS 0.5 MG/2.5 ML AMPUL.NEB NEB SCH ×4 (01:28→19:30)
--- NOTE | 2018-05-18 02:25 | NUR ---
MS ARLINE NOTES PT SLEEPING COMFORTABLY IN BED WITHOUT ANY ACUTE DISTRESS NOTED. RESPIRATION EVEN AND UNLABORED. KEPT HIM WARM AND COMFORTABLE AT ALL TIMES. PLACE CALL LIGHT AT REACH.
--- NOTE | 2018-05-18 05:45 | NUR ---
RECEIVED PATIENT FROM [facility]. IN STABLE CONDITION.
--- NOTE | 2018-05-18 05:45 | NUR ---
ms shelley closing notes transferred the patient to MS2 . patient aware and states Thank you" . Stable clay the night and all needs met . call light at reach and kept him warm and comfortable at all times. gave report to another nurse for continuity of care.
[2018-05-18 06:00] VITALS: BP 124/75
--- NOTE | 2018-05-18 06:30 | NUR ---
PATIENT ASLEEP; EASILY AROUSABLE. RESPIRATION EVEN. NO SIGNS OF PAIN NOTED. NEEDS ATTENDED. SAFETY PRECAUTIONS AND COMFORT MEASURES IN PLACE. WILL GIVE REPORT TO DAY SHIFT FOR CONTINUITY OF CARE.
[2018-05-18 08:00] VITALS: BP 136/74
[2018-05-18 08:13] LABS: BASOPHILS % (AUTO) 0.3 % (0.0-2.0); CALCIUM, SERUM 9.3 mg/dL (8.5-10.1); CREATININE 0.9 mg/dL (0.6-1.3); HEMATOCRIT 49 % (39-51); HEMOGLOBIN 16.8 g/dL (13.5-17.5); LYMPHOCYTES # (AUTO) 1.5 /CMM (0.8-4.8); LYMPHOCYTES % (AUTO) 22.5 % (20.0-44.0); MEAN CORPUSCULAR HGB CONC 34 g/dl (31.0-36.0); MEAN CORPUSCULAR VOLUME 92 fL (80-96); MONOCYTES # (AUTO) 0.6 /CMM (0.1-1.30); NEUTROPHILS # (AUTO) 4.4 /CMM (1.8-8.9); NEUTROPHILS % (AUTO) 67.2 % (43.0-81.0); PLATELET COUNT (AUTO) 315 /CMM (150-450); POTASSIUM 3.5 mmol/L (3.5-5.1); RED BLOOD CELL COUNT(AUTO) 5.33 MIL/uL (4.5-6.0); WHITE BLOOD COUNT (AUTO) 6.5 K/uL (4.3-11.0)
[2018-05-18] MEDS: LIDOCAINE 5% (PATCH) 1 EA PATCH TP SCH (09:00)
[2018-05-18] MEDS: LAMIVUDINE 300 MG PO SCH (10:41)
[2018-05-18] MEDS: APIXABAN 5 MG TABLET PO SCH ×2 (10:41→17:38)
[2018-05-18] MEDS: TENOFOVIR 300 MG PO SCH (10:42)
[2018-05-18] MEDS: KALETRA PO SCH ×2 (10:42→17:37)
[2018-05-18] MEDS: ESCITALOPRAM OXALATE (10 MG) 10 MG TABLET PO SCH (10:47)
[2018-05-18] MEDS: FUROSEMIDE 40 MG TABLET PO SCH (10:47)
[2018-05-18] MEDS: FLUCONAZOLE (100 MG) 100 MG TABLET PO SCH (10:47)
[2018-05-18] MEDS: GABAPENTIN 300 MG CAPSULE PO SCH ×3 (10:47→17:35)
[2018-05-18] MEDS: CARVEDILOL 3.125 MG TABLET PO SCH ×2 (10:48→16:50)
[2018-05-18] MEDS: methylPREDNISolone SOD SUCC 40 MG/ML VIAL IV SCH (10:59)
[2018-05-18] MEDS: LOSARTAN POTASSIUM 25 MG TABLET PO SCH (10:59)
[2018-05-18] MEDS: PANTOPRAZOLE 40 MG TABLET.DR PO SCH (10:59)
[2018-05-18] MEDS: MULTIVIT W/MINERALS 1 TAB TABLET PO SCH (10:59)
[2018-05-18] MEDS: POTASSIUM CHLORIDE 20 MEQ TAB.PRT.SR PO SCH (10:59)
[2018-05-18] MEDS: LEVOTHYROXINE SODIUM 50 MCG TABLET PO SCH (10:59)
[2018-05-18] MEDS: LORATADINE 10 MG TABLET PO SCH (11:01)
[2018-05-18] MEDS: ATORVASTATIN 40 MG TABLET PO SCH (11:01)
[2018-05-18] MEDS: ACYCLOVIR 800 MG TABLET PO SCH ×2 (13:51→17:35)
[2018-05-18] MEDS: IBUPROFEN 600 MG TABLET PO PRN (13:54)
[2018-05-18 16:40] VITALS: BP 106/56
[2018-05-18] MEDS: SULFAMETH/TRIMETH 800/160 MG 1 UDTAB TABLET PO SCH (17:40)
--- NOTE | 2018-05-18 19:23 | NUR ---
MS RN RECEIVE PT IN BED A/O X 3 RESPIRATIONS EVEN AND UNLABORED, NO SOB NOTED, NO DISTRESS, SAFETY MEASURES IN PLACE. WILL CONTINUE TO MONITOR.
[2018-05-18 20:00] VITALS: BP 123/66
[2018-05-18 20:19] VITALS: BP 123/66
[2018-05-18] MEDS: diphenhydrAMINE HCL 25 MG CAPSULE PO SCH (21:11)
[2018-05-18] MEDS: TRAZODONE 50 MG TABLET PO SCH (21:11)
[2018-05-18] MEDS: FINASTERIDE (5 MG) 5 MG TABLET PO SCH (21:11)
[2018-05-18] MEDS: SENNOSIDES 8.6 MG TABLET PO SCH (21:11)
[2018-05-19] MEDS: ALBUTEROL HALF STRENGTH 1.25 MG/3 ML VIAL.NEB NEB SCH ×3 (01:30→13:24)
[2018-05-19] MEDS: IPRATROPIUM NEB FS 0.5 MG/2.5 ML AMPUL.NEB NEB SCH ×3 (01:30→13:24)
--- NOTE | 2018-05-19 06:05 | NUR ---
MS RN CLOSING PT ASLEEP AND EASILY AWAKEN, RESPIRATION EVEN AND UNLABORED, STABLE AND NOT IN DISTRESS, PT ON 2LPM VIA NC 02 SAT AT 98%. AM CARE RENDERED, AFEBRILE. NEEDS ATTENDED AND ANTICIPATED, KEPT CLEAN AND DRY AND COMFORTABLE. NO COMPLAIN OF PAIN. SAFETY MEASURES AT ALL TIMES. ENDORSE TO THE NEXT SHIFT POC.
[2018-05-19 06:20] LABS: BASOPHILS # (AUTO) 0.1 /CMM (0.0-0.2); BASOPHILS % (AUTO) 1.1 % (0.0-2.0); HEMATOCRIT 52 % (39-51); HEMOGLOBIN 17.7 g/dL (13.5-17.5); LYMPHOCYTES # (AUTO) 1.7 /CMM (0.8-4.8); LYMPHOCYTES % (AUTO) 22.2 % (20.0-44.0); MEAN CORPUSCULAR HGB CONC 34 g/dl (31.0-36.0); MEAN CORPUSCULAR VOLUME 92 fL (80-96); MONOCYTES # (AUTO) 0.5 /CMM (0.1-1.30); MONOCYTES % (AUTO) 7.1 % (2.0-12.0); NEUTROPHILS # (AUTO) 5.3 /CMM (1.8-8.9); NEUTROPHILS % (AUTO) 69.6 % (43.0-81.0); PLATELET COUNT (AUTO) 352 /CMM (150-450); RED BLOOD CELL COUNT(AUTO) 5.63 MIL/uL (4.5-6.0); WHITE BLOOD COUNT (AUTO) 7.6 K/uL (4.3-11.0)
[2018-05-19 06:52] LABS: CALCIUM, SERUM 9.6 mg/dL (8.5-10.1); CREATININE 1.1 mg/dL (0.6-1.3); POTASSIUM 3.6 mmol/L (3.5-5.1)
--- NOTE | 2018-05-19 07:29 | NUR ---
MS/RN OPENING NOTE PATIENT IN BED IN STABLE CONDITION. A/O X 3. NO SIGNS OF ACUTE DISTRESS. NO COMPLAIN OF PAIN OR DISCOMFORT. ALL NEEDS ATTENDED TO. CALL LIGHT WITHIN REACH. WILL CONTINUE TO MONITOR TO ENSURE SAFETY.
[2018-05-19] MEDS: APIXABAN 5 MG TABLET PO SCH (08:36)
[2018-05-19] MEDS: LIDOCAINE 5% (PATCH) 1 EA PATCH TP SCH (08:36)
[2018-05-19] MEDS: methylPREDNISolone SOD SUCC 40 MG/ML VIAL IV SCH (08:36)
[2018-05-19] MEDS: POTASSIUM CHLORIDE 20 MEQ TAB.PRT.SR PO SCH (08:36)
[2018-05-19] MEDS: KALETRA PO SCH (08:36)
[2018-05-19] MEDS: MOUTHWASH PO SCH ×2 (08:37→12:41)
[2018-05-19] MEDS: LOSARTAN POTASSIUM 25 MG TABLET PO SCH (08:37)
[2018-05-19] MEDS: [UNRECOGNIZED DRUG - OTHER] PO SCH ×2 (08:37→12:41)
[2018-05-19] MEDS: NYSTATIN PO SCH ×2 (08:37→12:41)
[2018-05-19] MEDS: ACYCLOVIR 800 MG TABLET PO SCH (08:37)
[2018-05-19] MEDS: PANTOPRAZOLE 40 MG TABLET.DR PO SCH (08:37)
[2018-05-19] MEDS: TENOFOVIR 300 MG PO SCH (08:37)
[2018-05-19] MEDS: LEVOTHYROXINE SODIUM 50 MCG TABLET PO SCH (08:37)
[2018-05-19] MEDS: LORATADINE 10 MG TABLET PO SCH (08:37)
[2018-05-19] MEDS: LAMIVUDINE 300 MG PO SCH (08:37)
[2018-05-19] MEDS: VISCOUS LIDOCAINE PO SCH ×2 (08:37→12:41)
[2018-05-19] MEDS: FLUCONAZOLE (100 MG) 100 MG TABLET PO SCH (08:42)
[2018-05-19] MEDS: GABAPENTIN 300 MG CAPSULE PO SCH ×2 (08:42→12:40)
[2018-05-19] MEDS: MULTIVIT W/MINERALS 1 TAB TABLET PO SCH (08:42)
[2018-05-19] MEDS: CARVEDILOL 3.125 MG TABLET PO SCH (08:42)
[2018-05-19] MEDS: ATORVASTATIN 40 MG TABLET PO SCH (08:42)
[2018-05-19] MEDS: ESCITALOPRAM OXALATE (10 MG) 10 MG TABLET PO SCH (08:42)
[2018-05-19] MEDS: FUROSEMIDE 40 MG TABLET PO SCH (08:42)
[2018-05-19 08:56] VITALS: BP 142/92
[2018-05-19] MEDS ORDERED: FLUC100T8 PO (11:54)
[2018-05-19] MEDS ORDERED: ACYC800T PO (11:54)
[2018-05-19] MEDS ORDERED: AZIT250T PO (11:54)
[2018-05-19 16:05] VITALS: BP 132/91
--- NOTE | 2018-05-19 16:27 | NUR ---
MS/TUFT MACHINE OPERATOR PATIENT DISCHARGE TO [facility] IN STABLE CONDITION. A/OX 4. NO SIGNS OF ACUTE DISTRESS. NO COMPLAIN OF PAIN OR DISCOMFORT. DISCHARGE EDUCATION AND TEACHINGS PROVIDED, MADE AWARE TO FOLLOW UP WITH PCP, ONCOLOGIST WITHIN A WEEK AND PULMONOLOGY FOLLOW UP IN 2 WEEKS. VERBALIZED UNDERSTANDING. REPORT GIVEN TO CARMEN KRAMER FROM [facility]. NAME BAND AND IV LINE REMOVED. ALL NEEDS ATTENDED TO. LEFT IN STABLE CONDITION VIA GURNEY ACCOMPANIED BY 2 FIRE CONTROL TECHNICIAN B.
== END 2018-05-19 16:43 | DRG 974 ==
LOC: ER 12:37 → TELE 13:48 → MED 05-13 08:24 → MEDSG2 05-18 05:41
PROVIDERS: ADMIT Nurse Practitioner Acute Care; ATTEND Family Medicine
DX: B20 Human immunodeficiency virus [HIV] disease (principal); J96.01 Acute respiratory failure with hypoxia; J18.9 Pneumonia, unspecified organism; I21.A1 Myocardial infarction type 2; J96.02 Acute respiratory failure with hypercapnia; N17.0 Acute kidney failure with tubular necrosis; I50.43 Acute on chronic combined systolic (congestive) and diastolic (congestive) heart failure; I13.0 Hypertensive heart and chronic kidney disease with heart failure and stage 1 through stage 4 chronic kidney disease, or unspecified chronic kidney disease; G93.40 Encephalopathy, unspecified; C90.00 Multiple myeloma not having achieved remission; E22.2 Syndrome of inappropriate secretion of antidiuretic hormone; E87.3 Alkalosis; I48.91 Unspecified atrial fibrillation; E03.9 Hypothyroidism, unspecified; F32.9 Major depressive disorder, single episode, unspecified; E87.6 Hypokalemia; E83.39 Other disorders of phosphorus metabolism; E66.01 Morbid (severe) obesity due to excess calories; Z68.35 Body mass index [BMI] 35.0-35.9, adult; N18.9 Chronic kidney disease, unspecified; G47.33 Obstructive sleep apnea (adult) (pediatric); R13.10 Dysphagia, unspecified; B37.9 Candidiasis, unspecified; T50.2X5A Adverse effect of carbonic-anhydrase inhibitors, benzothiadiazides and other diuretics, initial encounter; Z79.01 Long term (current) use of anticoagulants; F17.200 Nicotine dependence, unspecified, uncomplicated; E78.5 Hyperlipidemia, unspecified
CPT/HCPCS: 36415; 36600; 71045-TC; 76705-TC; 76770-TC; 77075-TC; 80048-TC; 80053-TC; 80061-TC; 80076-TC; 81000-TC; 82232; 82803-TC; 83735-TC; 83880; 84100-TC; 84155; 84165; 84439-TC; 84443-TC; 84484-TC; 85025-TC; 85730-TC; 86360; 87040-TC; 87081-TC; 93307-TC; 94799-TC; G0378; J0456; J0692; J0696; J1940; J2920; J2930; J7030; J7060; Q0163